=== PATIENT | female | born 1960 | race Caucasian/White ===

== ENCOUNTER → 2016-08-31 | Outpatient (CLI) | payer OTHER | LOC: CIMAGING 09:00 | PROVIDERS: ATTEND Internal Medicine | DX: Z12.31 Encounter for screening mammogram for malignant neoplasm of breast (principal) | CPT/HCPCS: G0202 ==

== ENCOUNTER → 2018-01-25 | Outpatient (CLI) | payer OTHER | LOC: FIMAGING 08:01 | PROVIDERS: ATTEND Internal Medicine | DX: Z12.31 Encounter for screening mammogram for malignant neoplasm of breast (principal) ==

== ENCOUNTER → 2018-08-23 | Outpatient (CLI) | payer OTHER | LOC: FIMAGING 09:30 ==